=== PATIENT | female | born 1965 | race Caucasian/White ===

== ENCOUNTER 2018-04-10 13:25 | Emergency (ER) | payer BC ==
[~2018-04-10] VITALS: Ht 160 cm; Wt 100.0 kg
[2018-04-10] MEDS ORDERED: ONDANSETRON 2MG/ML, 2ML IVPush ONE (13:30)
[2018-04-10] MEDS ORDERED: ONDANSETRON 2MG/ML, 2ML ONE (13:31)
[2018-04-10] MEDS ORDERED: MORPHINE SULFATE 4 MG/ML, 1ML ONE ×2 (13:31→13:57)
[2018-04-10] MEDS: MORPHINE SULFATE 4 MG/ML, 1ML IVPush PRN ×2 (13:33→14:00)
[2018-04-10] MEDS ORDERED: OXYcodone/APAP 5/325MG TABLET ONE (14:15)
[2018-04-10] MEDS ORDERED: OXYcodone/APAP 5/325MG TABLET PO ONE (14:30)
[2018-04-10] MEDS ORDERED: HYDROmorphone 2 MG/ML, 1ML ONE (15:04)
[2018-04-10] MEDS ORDERED: HYDROmorphone 1 MG/ML, 1ML IVPush ONE (15:30)
[2018-04-10 16:41] VITALS: BP 125/81
== END 2018-04-10 16:44 | disposition home or self-care (01) ==
LOC: ED 16:38
DX: S52.571A Other intraarticular fracture of lower end of right radius, initial encounter for closed fracture (principal); W01.0XXA Fall on same level from slipping, tripping and stumbling without subsequent striking against object, initial encounter; Y93.54 Activity, bowling; Y92.89 Other specified places as the place of occurrence of the external cause; Y99.8 Other external cause status
CPT/HCPCS: 29125; 73110; 96374; 96375; 99284; J1170; J2405